=== PATIENT | male | born 1945 | race Caucasian/White ===

== ENCOUNTER 2018-12-08 11:19 | Day surgery (SDC) | payer BC, OTHER ==
[~2018-12-08] VITALS: Ht 165.1 cm; Wt 52.0 kg
[2018-12-08 12:05] VITALS: BP 163/97
[2018-12-08] MEDS ORDERED: LACTATED RINGERS 1,000 ML IV SCH (12:20)
[2018-12-08] MEDS ORDERED: PROPOFOL 50 ML ONE (12:34)
[2018-12-08] MEDS ORDERED: FELO2.5T PO (12:41)
[2018-12-08] MEDS ORDERED: CLOP75TA52 PO (12:41)
[2018-12-08] MEDS ORDERED: ERGO500017 PO (12:41)
[2018-12-08] MEDS ORDERED: ASPI-515 PO (12:41)
[2018-12-08] MEDS ORDERED: FERR324T5 PO (12:41)
[2018-12-08] MEDS ORDERED: ATOR-2 PO (12:41)
[2018-12-08] MEDS ORDERED: HYDR1TAB14 PO (12:41)
[2018-12-08] MEDS ORDERED: LOPE2CAP PO (12:41)
[2018-12-08] MEDS ORDERED: FLUTICASONE (12:41)
[2018-12-08] MEDS ORDERED: LIDOCAINE 2% 100MG/5ML SYRINGE ONE (13:06)
[2018-12-08] MEDS ORDERED: ACETAMINOPHEN 325 MG TABLET PO PRN (13:30)
[2018-12-08] MEDS ORDERED: MORPHINE SULFATE 4 MG/ML, 1ML IVPush PRN (13:30)
[2018-12-08] MEDS ORDERED: OXYcodone 5 MG/5 ML ORAL.SOL UDC PO PRN (13:30)
[2018-12-08] MEDS ORDERED: FENTANYL PF 100 MCG/2ML IV PRN (13:30)
[2018-12-08] MEDS ORDERED: ONDANSETRON 2MG/ML, 2ML IV PRN (13:30)
[2018-12-08] MEDS ORDERED: ONDANSETRON ODT 8 MG PO PRN (13:30)
== END 2018-12-08 15:30 | disposition home or self-care (01) ==
LOC: OUT 11:19
PROVIDERS: ATTEND Internal Medicine Gastroenterology
DX: C15.5 Malignant neoplasm of lower third of esophagus (principal); K22.2 Esophageal obstruction; K21.9 Gastro-esophageal reflux disease without esophagitis; K31.7 Polyp of stomach and duodenum; K44.9 Diaphragmatic hernia without obstruction or gangrene; J44.9 Chronic obstructive pulmonary disease, unspecified; Z86.010 Personal history of colon polyps; Z91.09 Other allergy status, other than to drugs and biological substances; Z87.891 Personal history of nicotine dependence; Z90.49 Acquired absence of other specified parts of digestive tract; Z98.890 Other specified postprocedural states
CPT/HCPCS: 43266; 71045; 76000; 93005; C1769; C1876; J2704

== ENCOUNTER 2018-12-08 19:29 | Inpatient (IN) | payer BC, OTHER ==
[~2018-12-08] VITALS: Ht 160 cm; Wt 56.6 kg
[~2018-12-08 19:29] MED LIST: ASPI-515 PO; ATOR-2 PO; CLOP75TA52 PO; ERGO500017 PO; FELO2.5T PO; FERR324T5 PO; FLUTICASONE; HYDR1TAB14 PO; LOPE2CAP PO
[2018-12-08] MEDS ORDERED: MORPHINE SULFATE 4 MG/ML, 1ML IVPush PRN (20:00)
[2018-12-08] MEDS ORDERED: PLEASE ENTER HEIGHT AND WEIGHT MC SCH (20:00)
[2018-12-08] MEDS ORDERED: SODIUM CHLORIDE FLUSH 10ML SYR IVF ONE (20:00)
--- NOTE | 2018-12-08 20:05 | NUR ---
PT ARRIVES FROM HOME VIA EMS S/P ESOPHAGEAL STENT AND RESECTION. PT WAS GIVEN OKAY TO EAT TODAY AND HAD A GRAPE SMOOTHIE AT [facility]. WHEN PT GOT HOME HE STARTED HAVING UNCONTROLLED BM AND UNABLE TO AMBULATE AND BECAME VERY DIZZY. PTS GRANDSON FOUND PT ON FLOOR AT HOME THEN HE CALLED EMS. PT ON ARIVAL IS COVERED IN FECES. PT EASILY HAD 600CC OF FECAL WATERY MATTER IN RHYMERA AND PT CONTINUES TO HAVE UNCONTROLLED BM AT THIS TIME. 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 PT HAS A RBB ON ARRIVAL AND MD LAW AWARE. PT DENIES ANY TRUAMA. PT IS A/O X4 AND HAS NO OTHER SYMPTOMS AT THIS TIME. PT CONNECTED TO ALL MONITORS AND CALL LIGHT IN REACH. AWIAITING FURTHER ORDERS AT THIS TIME.
--- NOTE | 2018-12-08 20:08 | NUR ---
PT CLEANED AND NEW LINENS PLACED X 2 NOW.
[2018-12-08 20:13] LABS: BASOPHILS # (AUTO) 0.01 x10^3/uL (0-0.1); BASOPHILS % (AUTO) 0 % (0-1); EOSINOPHILS # (AUTO) 0.24 x10^3/uL (0-0.4); EOSINOPHILS % (AUTO) 2 % (1-7); LYMPHOCYTES # (AUTO) 0.42 x10^3/uL (1-3.4); LYMPHOCYTES % (AUTO) 4 % (22-44); MD NO; MEAN CORPUSCULAR HEMOGLOBIN 30.3 pg (27.5-34.5); MEAN CORPUSCULAR HGB CONC 31.2 g/dL (33.2-36.2); MEAN CORPUSCULAR VOLUME 97.2 fL (81-97); MEAN PLATELET VOLUME 8.8 fL (7.4-10.4); MONOCYTES # (AUTO) 0.74 x10^3/uL (0.2-0.8); MONOCYTES % (AUTO) 7 % (2-9); NEUTROPHILS # (AUTO) 8.72 x10^3/uL (1.8-6.8); NEUTROPHILS % (AUTO) 86 % (42-75); PLATELET COUNT 188 x10^3/uL (130-400); RED BLOOD COUNT 3.01 x10^6/uL (4.38-5.82)
--- NOTE | 2018-12-08 20:13 | NUR ---
PILLOW AND WARM BLANKETS PROVIDED. PT CLEANED AGAIN DUE TO UNCONTROLLED BM.
[2018-12-08 20:23] LABS: INTERNATIONAL NORMALIZED RATIO 0.97 (0.93-1.1); PROTHROMBIN TIME 10.3 Seconds (9.6-11.5)
[2018-12-08 20:24] LABS: ALANINE AMINOTRANSFERASE 38 U/L (12-78); ALBUMIN 2.9 g/dL (3.4-5.0); ANION GAP 8 mmol/L (5-15); CHLORIDE 124 mmol/L (98-107); CREATININE 2.66 mg/dL (0.7-1.3)
[2018-12-08 20:27] LABS: ALKALINE PHOSPHATASE 185 U/L (45-117); BILIRUBIN,TOTAL 0.2 mg/dL (0.2-1.0)
--- NOTE | 2018-12-08 20:36 | NUR ---
RECTAL TUBE PLACED WITH RYAN RODRIGUEZ.
--- NOTE | 2018-12-08 20:58 | NUR ---
IVF STARTED ON DIALAFLOW. REPORT CALLED TO [facility] AND INFORMED PT HAS SMALL SORE ON COCCYX AREA THAT NEEDS WOUND DOCUMENTATION. VSS. PT GIVEN ADDITIONAL WARM BLANKET. RECTAL TUBE REMAINS IN PLACE.
[2018-12-08] MEDS ORDERED: SODIUM CHLORIDE 0.9% 1,000 ML IV ONE (21:00)
[2018-12-08 21:41] LABS: CLOSTRIDIUM DIFFICILE ANTIGEN NEGATIVE; CLOSTRIDIUM DIFFICILE TOXIN NEGATIVE (Negative)
[2018-12-08] MEDS ORDERED: SODIUM CHLORIDE 0.9% 1,000 ML IV SCH (22:07)
[2018-12-08] MEDS ORDERED: DOCUSATE 100 MG CAPSULE PO PRN (22:30)
[2018-12-08] MEDS ORDERED: LIDODERM 5% PATCH TD PRN (22:30)
[2018-12-08] MEDS ORDERED: hydrALAzine 20 MG/ML, 1ML IVPush PRN (22:30)
[2018-12-08] MEDS ORDERED: TEMAZEPAM 15 MG CAPSULE PO PRN (22:30)
[2018-12-08] MEDS ORDERED: ONDANSETRON 2MG/ML, 2ML IVPush PRN (22:30)
[2018-12-08] MEDS ORDERED: ACETAMINOPHEN 325 MG TABLET PO PRN (22:30)
[2018-12-09 00:51] VITALS: BP 146/78
[2018-12-09 01:08] LABS: ANION GAP 6 mmol/L (5-15); CHLORIDE 123 mmol/L (98-107); CREATININE 2.47 mg/dL (0.7-1.3)
[2018-12-09 02:00] VITALS: BP 134/73
[2018-12-09 04:57] LABS: ANION GAP 6 mmol/L (5-15); CHLORIDE 124 mmol/L (98-107); CREATININE 2.38 mg/dL (0.7-1.3)
[2018-12-09] MEDS: DEXTROSE 5% 1,000 ML IV SCH ×3 (06:24→15:42)
[2018-12-09 08:18] VITALS: BP 149/76
[2018-12-09 09:22] LABS: ANION GAP 9 mmol/L (5-15); CALCIUM 8.5 mg/dL (8.5-10.1); CHLORIDE 119 mmol/L (98-107); CREATININE 2.47 mg/dL (0.7-1.3)
[2018-12-09 15:09] VITALS: BP 154/72
--- NOTE | 2018-12-09 15:22 | NUR ---
Osmolite 1.2 goal: 70 ml/hr Addendum: 12/09/18 at [address] Amended: Links added.
[2018-12-09 15:42] LABS: ANION GAP 7 mmol/L (5-15); CALCIUM 8.5 mg/dL (8.5-10.1); CHLORIDE 118 mmol/L (98-107); CREATININE 2.38 mg/dL (0.7-1.3)
[2018-12-09 20:00] VITALS: BP 148/77
[2018-12-09 20:57] LABS: ANION GAP 7 mmol/L (5-15); CALCIUM 7.8 mg/dL (8.5-10.1); CHLORIDE 115 mmol/L (98-107); CREATININE 2.34 mg/dL (0.7-1.3)
[2018-12-09] MEDS: ATORVASTATIN 80 MG TABLET PO SCH (22:00)
[2018-12-10] MEDS: DEXTROSE 5% 1,000 ML IV SCH (00:50)
[2018-12-10 02:00] VITALS: BP 147/73
[2018-12-10 03:18] LABS: ANION GAP 7 mmol/L (5-15); CALCIUM 7.7 mg/dL (8.5-10.1); CHLORIDE 114 mmol/L (98-107)
[2018-12-10 03:21] LABS: CREATININE 2.35 mg/dL (0.7-1.3)
[2018-12-10 04:53] LABS: MEAN CORPUSCULAR HEMOGLOBIN 31.5 pg (27.5-34.5); MEAN CORPUSCULAR HGB CONC 32.5 g/dL (33.2-36.2); MEAN CORPUSCULAR VOLUME 96.8 fL (81-97); MEAN PLATELET VOLUME 9.7 fL (7.4-10.4); PLATELET COUNT 144 x10^3/uL (130-400); RED BLOOD COUNT 2.67 x10^6/uL (4.38-5.82); RED CELL DISTRIBUTION WIDTH 17.5 % (9.4-14.8)
[2018-12-10 05:36] LABS: MD YES
[2018-12-10 05:37] LABS: BAND#(MANUAL) 0.24 x10^3/uL; BANDS%(MANUAL) 1 % (0-7); LYMPH#(MANUAL) 1.69 x10^3/uL (1-3.4); LYMPHS% (MANUAL) 7 % (22-44); MONOS#(MANUAL) 0.48 x10^3/uL (0.3-2.7); MONOS% (MANUAL) 2 % (2-9); SEG#(MANUAL) 21.69 x10^3/uL (1.8-6.8); SEGS% (MANUAL) 90 % (42-75)
[2018-12-10 05:38] LABS: <PLATELET ESTIMATE> ADEQUATE; ANISOCYTOSIS 1+; HYPOCHROMIA 1+; OVALOCYTES 1+; POLYCHROMASIA 1+
[2018-12-10 05:39] LABS: <PLT MORPHOLOGY> NORMAL PLT MORPH
[2018-12-10] MEDS: ASPIRIN 81 MG TABLET EC PO SCH (05:51)
[2018-12-10 07:13] VITALS: BP 151/75
[2018-12-10 08:48] LABS: MEAN CORPUSCULAR HEMOGLOBIN 31.1 pg (27.5-34.5); MEAN CORPUSCULAR HGB CONC 32.5 g/dL (33.2-36.2); MEAN CORPUSCULAR VOLUME 95.6 fL (81-97); MEAN PLATELET VOLUME 9.4 fL (7.4-10.4); PLATELET COUNT 138 x10^3/uL (130-400); RED CELL DISTRIBUTION WIDTH 17.6 % (9.4-14.8)
[2018-12-10 08:55] LABS: ANION GAP 8 mmol/L (5-15); CALCIUM 7.9 mg/dL (8.5-10.1); CHLORIDE 114 mmol/L (98-107); CREATININE 2.23 mg/dL (0.7-1.3)
[2018-12-10 08:58] LABS: HCT (SEDRATE) 26.8 % (39.2-51.8)
[2018-12-10] MEDS: CLOPIDOGREL 75 MG TABLET PO SCH (09:00)
[2018-12-10 09:04] LABS: MD YES
[2018-12-10 09:05] LABS: EOS#(MANUAL) 0.49 x10^3/uL (0.0-0.4); EOS% (MANUAL) 2 % (1-7); LYMPH#(MANUAL) 0.99 x10^3/uL (1-3.4); LYMPHS% (MANUAL) 4 % (22-44); MONOS#(MANUAL) 0.74 x10^3/uL (0.3-2.7); MONOS% (MANUAL) 3 % (2-9); SEG#(MANUAL) 22.48 x10^3/uL (1.8-6.8); SEGS% (MANUAL) 91 % (42-75)
[2018-12-10 09:06] LABS: ANISOCYTOSIS 1+; HYPOCHROMIA 1+; OVALOCYTES 1+; POLYCHROMASIA 1+
[2018-12-10 09:07] LABS: <PLATELET ESTIMATE> ADEQUATE; <PLT MORPHOLOGY> NORMAL PLT MORPH
[2018-12-10 12:44] VITALS: BP 137/68
[2018-12-10 19:37] VITALS: BP 130/67
[2018-12-10] MEDS: ATORVASTATIN 80 MG TABLET PO SCH (21:00)
[2018-12-11 01:14] VITALS: BP 127/73
[2018-12-11 04:41] LABS: MEAN CORPUSCULAR HEMOGLOBIN 31.8 pg (27.5-34.5); MEAN CORPUSCULAR HGB CONC 33.3 g/dL (33.2-36.2); MEAN CORPUSCULAR VOLUME 95.6 fL (81-97); MEAN PLATELET VOLUME 9.1 fL (7.4-10.4); PLATELET COUNT 129 x10^3/uL (130-400); RED CELL DISTRIBUTION WIDTH 17.6 % (9.4-14.8)
[2018-12-11 04:50] LABS: ANION GAP 7 mmol/L (5-15); CALCIUM 8.1 mg/dL (8.5-10.1); CHLORIDE 117 mmol/L (98-107); CREATININE 2.03 mg/dL (0.7-1.3)
[2018-12-11 05:35] LABS: BASOPHILS % (AUTO) 0 % (0-1); EOSINOPHILS # (AUTO) 0.59 x10^3/uL (0-0.4); EOSINOPHILS % (AUTO) 3 % (1-7); LYMPHOCYTES # (AUTO) 0.66 x10^3/uL (1-3.4); LYMPHOCYTES % (AUTO) 3 % (22-44); MD SCAN; MONOCYTES # (AUTO) 1.39 x10^3/uL (0.2-0.8); MONOCYTES % (AUTO) 7 % (2-9); NEUTROPHILS # (AUTO) 17.27 x10^3/uL (1.8-6.8); NEUTROPHILS % (AUTO) 87 % (42-75)
[2018-12-11] MEDS: ASPIRIN 81 MG TABLET EC PO SCH (05:50)
[2018-12-11 07:30] VITALS: BP 134/74
[2018-12-11] MEDS: CLOPIDOGREL 75 MG TABLET PO SCH (09:22)
[2018-12-11 13:45] VITALS: BP 132/74
--- NOTE | 2018-12-11 16:41 | NUR ---
Osmolite 1.2 18 hour feeds with goal of 90 ml/hr. restart at 20 ml/hr. (18 hour feeds, 6 hours off) Addendum: 12/11/18 at [address] Amended: Links added.
[2018-12-11 19:27] VITALS: BP 142/77
[2018-12-11] MEDS: ATORVASTATIN 80 MG TABLET PO SCH (20:46)
[2018-12-12 02:35] VITALS: BP 136/70
[2018-12-12 04:36] LABS: MEAN CORPUSCULAR HEMOGLOBIN 30.9 pg (27.5-34.5); MEAN CORPUSCULAR HGB CONC 32.2 g/dL (33.2-36.2); MEAN CORPUSCULAR VOLUME 95.9 fL (81-97); MEAN PLATELET VOLUME 9.5 fL (7.4-10.4); PLATELET COUNT 134 x10^3/uL (130-400); RED CELL DISTRIBUTION WIDTH 17.7 % (9.4-14.8)
[2018-12-12 04:42] LABS: ANION GAP 9 mmol/L (5-15); CALCIUM 7.4 mg/dL (8.5-10.1); CHLORIDE 117 mmol/L (98-107); CREATININE 1.73 mg/dL (0.7-1.3)
[2018-12-12] MEDS: ASPIRIN 81 MG TABLET EC PO SCH (05:03)
[2018-12-12 05:11] LABS: BASOPHILS # (AUTO) 0.03 x10^3/uL (0-0.1); BASOPHILS % (AUTO) 0 % (0-1); EOSINOPHILS # (AUTO) 0.64 x10^3/uL (0-0.4); EOSINOPHILS % (AUTO) 6 % (1-7); LYMPHOCYTES # (AUTO) 0.54 x10^3/uL (1-3.4); LYMPHOCYTES % (AUTO) 5 % (22-44); MD SCAN; MONOCYTES # (AUTO) 0.92 x10^3/uL (0.2-0.8); MONOCYTES % (AUTO) 9 % (2-9); NEUTROPHILS # (AUTO) 8.71 x10^3/uL (1.8-6.8); NEUTROPHILS % (AUTO) 80 % (42-75)
[2018-12-12 07:25] VITALS: BP 145/72
[2018-12-12] MEDS: SODIUM CHLORIDE 0.9% 1,000 ML IV SCH (09:00)
[2018-12-12] MEDS: CLOPIDOGREL 75 MG TABLET PO SCH (09:00)
[2018-12-12 13:10] VITALS: BP 138/70
[2018-12-12 18:54] VITALS: BP 137/72
[2018-12-12] MEDS: ATORVASTATIN 80 MG TABLET PO SCH (20:29)
[2018-12-13 00:54] VITALS: BP 140/68
[2018-12-13] MEDS: SODIUM CHLORIDE 0.9% 1,000 ML IV SCH ×2 (02:23→19:25)
[2018-12-13 04:58] LABS: MEAN CORPUSCULAR HGB CONC 32.5 g/dL (33.2-36.2); MEAN CORPUSCULAR VOLUME 95.4 fL (81-97); MEAN PLATELET VOLUME 9.4 fL (7.4-10.4); PLATELET COUNT 143 x10^3/uL (130-400); RED BLOOD COUNT 2.31 x10^6/uL (4.38-5.82); RED CELL DISTRIBUTION WIDTH 17.5 % (9.4-14.8)
[2018-12-13 05:04] LABS: ANION GAP 6 mmol/L (5-15); CALCIUM 7.4 mg/dL (8.5-10.1); CHLORIDE 120 mmol/L (98-107)
[2018-12-13 05:06] LABS: CREATININE 1.69 mg/dL (0.7-1.3)
[2018-12-13] MEDS: ASPIRIN 81 MG TABLET EC PO SCH (05:14)
[2018-12-13 05:19] LABS: BASOPHILS # (AUTO) 0.02 x10^3/uL (0-0.1); BASOPHILS % (AUTO) 0 % (0-1); EOSINOPHILS % (AUTO) 4 % (1-7); LYMPHOCYTES % (AUTO) 5 % (22-44); MD SCAN; MONOCYTES # (AUTO) 0.91 x10^3/uL (0.2-0.8); MONOCYTES % (AUTO) 10 % (2-9); NEUTROPHILS % (AUTO) 81 % (42-75)
[2018-12-13] MEDS: CLOPIDOGREL 75 MG TABLET PO SCH (07:59)
[2018-12-13 08:33] VITALS: BP 132/68
[2018-12-13 13:30] VITALS: BP 138/64
[2018-12-13 19:07] VITALS: BP 134/64
[2018-12-13] MEDS: ATORVASTATIN 80 MG TABLET PO SCH (21:09)
[2018-12-14 02:28] VITALS: BP 140/70
[2018-12-14 03:14] VITALS: BP 140/72
[2018-12-14 04:49] LABS: MEAN CORPUSCULAR HEMOGLOBIN 30.6 pg (27.5-34.5); MEAN CORPUSCULAR HGB CONC 32.2 g/dL (33.2-36.2); MEAN PLATELET VOLUME 9.1 fL (7.4-10.4); PLATELET COUNT 158 x10^3/uL (130-400); RED BLOOD COUNT 2.31 x10^6/uL (4.38-5.82); RED CELL DISTRIBUTION WIDTH 17.1 % (9.4-14.8)
[2018-12-14 04:56] LABS: ANION GAP 6 mmol/L (5-15); CALCIUM 7.6 mg/dL (8.5-10.1); CHLORIDE 121 mmol/L (98-107); CREATININE 1.63 mg/dL (0.7-1.3)
[2018-12-14 05:20] LABS: BASOPHILS # (AUTO) 0.01 x10^3/uL (0-0.1); BASOPHILS % (AUTO) 0 % (0-1); EOSINOPHILS # (AUTO) 0.46 x10^3/uL (0-0.4); EOSINOPHILS % (AUTO) 5 % (1-7); LYMPHOCYTES # (AUTO) 0.58 x10^3/uL (1-3.4); LYMPHOCYTES % (AUTO) 7 % (22-44); MD SCAN; MONOCYTES # (AUTO) 0.84 x10^3/uL (0.2-0.8); MONOCYTES % (AUTO) 10 % (2-9); NEUTROPHILS # (AUTO) 6.91 x10^3/uL (1.8-6.8); NEUTROPHILS % (AUTO) 79 % (42-75)
[2018-12-14] MEDS: ASPIRIN 81 MG TABLET EC PO SCH (05:59)
[2018-12-14 08:15] VITALS: BP 147/73
[2018-12-14] MEDS: CLOPIDOGREL 75 MG TABLET PO SCH (08:24)
[2018-12-14] MEDS: SODIUM CHLORIDE 0.9% 1,000 ML IV SCH (08:29)
[2018-12-14 13:18] VITALS: BP 153/74
== END 2018-12-14 18:27 | disposition home or self-care (01) | DRG 682 ==
LOC: ED 19:46 → EDIP 20:35 → 3NW 21:15
PROVIDERS: ADMIT Internal Medicine; ATTEND Internal Medicine
DX: N17.0 Acute kidney failure with tubular necrosis (principal); E43 Unspecified severe protein-calorie malnutrition; E87.0 Hyperosmolality and hypernatremia; C15.9 Malignant neoplasm of esophagus, unspecified; I12.9 Hypertensive chronic kidney disease with stage 1 through stage 4 chronic kidney disease, or unspecified chronic kidney disease; E78.5 Hyperlipidemia, unspecified; L89.159 Pressure ulcer of sacral region, unspecified stage; R62.7 Adult failure to thrive; Z66 Do not resuscitate; N18.9 Chronic kidney disease, unspecified; Z68.22 Body mass index [BMI] 22.0-22.9, adult; Z86.73 Personal history of transient ischemic attack (TIA), and cerebral infarction without residual deficits; Z87.891 Personal history of nicotine dependence
CPT/HCPCS: 36415; 71045; 80048; 80053; 83690; 83735; 83930; 84100; 84145; 85025; 85610; 85651; 85730; 86140; 87324; 93005; 99285; G0378; J7070; 92523-GN; J7030

== ENCOUNTER 2019-10-11 12:51 | Inpatient (IN) | payer BC, MEDICARE ==
[~2019-10-11] VITALS: Ht 165.1 cm; Wt 45.8 kg
[~2019-10-11 12:51] MED LIST changes: +FURO20TA3 PO; -HYDR1TAB14 PO; +HYDR1TAB15 PO; +OMEP-110 PO; +POTA20TA14 PO
[2019-10-11] MEDS ORDERED: SODIUM CHLORIDE FLUSH 10ML SYR IVF ONE (13:00)
--- NOTE | 2019-10-11 13:09 | NUR ---
CXR DONE. LAB AT BS
--- NOTE | 2019-10-11 13:27 | NUR ---
PT A&OX4, RESP EVEN & UNLABORED, SPEECH CLEAR. PT C/O WEAKNESS, WEIGHT LOSS (ABOUT 16 LBS IN PAST 2 WEEKS). HX: ESOPHAGEAL CA, THROAT STENT. LAST CHEMO TX WAS 09/27/19 - CHEMO EVERY OTHER WEAK. STATES HE PREFERS LASHAWN LINDA TO WATER. HAD BREAKFAST ESSENTIALS LIQUID THIS MORNING. WILL NEED SOLID FOOD LIQUIFIED IF ADMITTED.
[2019-10-11] MEDS ORDERED: LOSA25TA12 PO (13:42)
[2019-10-11] MEDS ORDERED: ATOR20TA86 PO (13:42)
[2019-10-11 13:43] LABS: ALANINE AMINOTRANSFERASE 13 U/L (12-78); ALBUMIN 2.2 g/dL (3.4-5.0); ANION GAP 8 mmol/L (5-15); CALCIUM 8.3 mg/dL (8.5-10.1); CHLORIDE 111 mmol/L (98-107); CREATININE 1.42 mg/dL (0.7-1.3)
[2019-10-11 13:45] LABS: ALKALINE PHOSPHATASE 165 U/L (45-117); BILIRUBIN,TOTAL 0.3 mg/dL (0.2-1.0); TOTAL PROTEIN 6.6 g/dL (6.4-8.2)
--- NOTE | 2019-10-11 13:45 | NUR ---
PT REPORTS HE'S HAD A BUTTOCK BED SORE FOR 2 MONTHS; SORE IS IMPROVING.
[2019-10-11 13:56] LABS: MD YES; MEAN CORPUSCULAR HEMOGLOBIN 35.1 pg (27.5-34.5); MEAN CORPUSCULAR HGB CONC 32.1 g/dL (33.2-36.2); MEAN CORPUSCULAR VOLUME 109.3 fL (81-97); MEAN PLATELET VOLUME 8.5 fL (7.4-10.4); PLATELET COUNT 68 x10^3/uL (130-400); RED BLOOD COUNT 2.81 x10^6/uL (4.38-5.82); RED CELL DISTRIBUTION WIDTH 18.9 % (9.4-14.8)
[2019-10-11] MEDS ORDERED: LIDO30CR TP (14:14)
[2019-10-11] MEDS ORDERED: TORS10TA4 PO (14:14)
[2019-10-11] MEDS ORDERED: CEPH-376 PO (14:14)
[2019-10-11] MEDS ORDERED: CALC0.25 PO (14:14)
[2019-10-11] MEDS ORDERED: SINEX (14:16)
[2019-10-11] MEDS ORDERED: ALKALOL (14:16)
[2019-10-11] MEDS ORDERED: HYDR-3237 PO (14:16)
--- NOTE | 2019-10-11 14:39 | NUR ---
PT PREFERS PORT ACCESS FOR IV SOLUTIONS/MEDICATIONS
--- NOTE | 2019-10-11 14:44 | NUR ---
PT REMINDED OF NEED FOR URINE SPECIMEN; DENIES URGE TO VOID. SPECIMEN CUP AT BEDSIDE. NATALIO CAN AT BS. GOKUL HARKINS WARMER PROVIDED TO PT.
[2019-10-11] MEDS ORDERED: D5%-0.45% NACL 1,000 ML IV SCH (15:00)
--- NOTE | 2019-10-11 15:20 | NUR ---
NOTIFIED [facility] OF D5/NS 0.45 ORDER. HOSPTIALIST QUESTIONING ORDER & IS CONSIDERING CHANGING IT.
--- NOTE | 2019-10-11 15:28 | NUR ---
PT REPORT TO [facility] FOR ROOM 439. INFORMED RN THAT HOSPITALIST IS QUESTIONING ERP ORDER OF D5/NS0.45 AND WILL PROBABLY CHANGE IT.
--- NOTE | 2019-10-11 15:30 | NUR ---
UA SPECIMEN STILL NOT PROVIDED.
[2019-10-11 15:31] LABS: BAND#(MANUAL) 0.32 x10^3/uL; BANDS%(MANUAL) 6 % (0-7); EOS#(MANUAL) 0.58 x10^3/uL (0.0-0.4); EOS% (MANUAL) 11 % (1-7); LYMPHS% (MANUAL) 15 % (22-44); MONOS#(MANUAL) 1.38 x10^3/uL (0.3-2.7); MONOS% (MANUAL) 26 % (2-9); SEG#(MANUAL) 2.23 x10^3/uL (1.8-6.8); SEGS% (MANUAL) 42 % (42-75)
[2019-10-11 15:32] LABS: <PLATELET ESTIMATE> DECREASED; ANISOCYTOSIS 1+; OVALOCYTES 1+; POLYCHROMASIA 1+; TEAR DROPS 1+
[2019-10-11 15:33] LABS: <PLT MORPHOLOGY> NORMAL PLT MORPH
--- NOTE | 2019-10-11 15:35 | NUR ---
CALLED [facility] RE: PORT ACCESS VS PERIPHERAL IV. THEY WILL ACCESS PORT PRN.
[2019-10-11] MEDS ORDERED: ONDANSETRON 2MG/ML, 2ML IVPush PRN (16:00)
[2019-10-11] MEDS ORDERED: LIDOCAINE TP PRN (16:00)
[2019-10-11] MEDS ORDERED: PRILOCAINE TP PRN (16:00)
[2019-10-11] MEDS ORDERED: LABETALOL 5MG/ML, 20ML IVPush PRN (16:00)
[2019-10-11] MEDS ORDERED: PROMETHAZINE 25 MG/ML, 1ML IM PRN (16:00)
[2019-10-11] MEDS ORDERED: POLYETHYLENE GLYCOL 17 GM PACKET PO PRN (16:00)
[2019-10-11] MEDS ORDERED: LABETALOL 5 MG/ML SYR. (IV ONLY) IVPush PRN (16:00)
[2019-10-11] MEDS ORDERED: LOPERAMIDE 2 MG CAPSULE PO PRN (16:00)
[2019-10-11] MEDS ORDERED: ENALAPRILAT 1.25 MG/ML, 2ML IVPush PRN (16:00)
[2019-10-11] MEDS ORDERED: METOCLOPRAMIDE 5 MG/ML, 2ML IVPush PRN (16:00)
--- NOTE | 2019-10-11 16:01 | NUR ---
DR HOYOS BS.
[2019-10-11 16:38] VITALS: BP 133/92
[2019-10-11 17:15] LABS: MICROSCOPIC AUTO
[2019-10-11 17:18] LABS: CULTURE INDICATED? NO
[2019-10-11] MEDS: D5%-0.45% NACL 1,000 ML IV SCH (18:31)
[2019-10-11 19:09] VITALS: BP 121/74
[2019-10-11 20:00] VITALS: BP 118/63
[2019-10-12] VITALS (7 sets, daily range): BP systolic 117–147; BP diastolic 67–78
[2019-10-12] MEDS: D5%-0.45% NACL 1,000 ML IV SCH ×2 (02:30→13:07)
[2019-10-12 05:45] LABS: CHLORIDE 110 mmol/L (98-107)
[2019-10-12 05:56] LABS: ANION GAP 6 mmol/L (5-15); CALCIUM 7.9 mg/dL (8.5-10.1); CREATININE 1.41 mg/dL (0.7-1.3)
[2019-10-12 07:14] LABS: MD YES; MEAN CORPUSCULAR HEMOGLOBIN 35.3 pg (27.5-34.5); MEAN CORPUSCULAR HGB CONC 31.8 g/dL (33.2-36.2); MEAN CORPUSCULAR VOLUME 110.8 fL (81-97); MEAN PLATELET VOLUME 8.9 fL (7.4-10.4); PLATELET COUNT 58 x10^3/uL (130-400); RED BLOOD COUNT 2.17 x10^6/uL (4.38-5.82); RED CELL DISTRIBUTION WIDTH 19.2 % (9.4-14.8)
[2019-10-12 07:16] LABS: ANISOCYTOSIS 1+; BASOS#(MANUAL) 0.05 x10^3/uL (0-0.1); BASOS% (MANUAL) 1 % (0-1); EOS% (MANUAL) 13 % (1-7); LYMPH#(MANUAL) 0.78 x10^3/uL (1-3.4); LYMPHS% (MANUAL) 17 % (22-44); MONOS#(MANUAL) 0.83 x10^3/uL (0.3-2.7); MONOS% (MANUAL) 18 % (2-9); POLYCHROMASIA 1+; SEG#(MANUAL) 2.35 x10^3/uL (1.8-6.8); SEGS% (MANUAL) 51 % (42-75)
[2019-10-12 07:17] LABS: <PLATELET ESTIMATE> DECREASED; <PLT MORPHOLOGY> NORMAL PLT MORPH; OVALOCYTES 1+; TEAR DROPS 1+
[2019-10-12] MEDS ORDERED: TORSEMIDE 20 MG TABLET PO SCH (09:00)
[2019-10-12] MEDS ORDERED: GUAIFENESIN 200 MG TABLET PO PRN (12:00)
[2019-10-12] MEDS: ATORVASTATIN 20 MG TABLET PO SCH (13:05)
[2019-10-12] MEDS: CALCITRIOL 0.25 MCG CAPSULE PO SCH (13:05)
[2019-10-12] MEDS: LOPERAMIDE 2 MG CAPSULE PO PRN (13:13)
[2019-10-12] MEDS: FERROUS SULFATE 325 MG TABLET PO SCH (13:13)
--- NOTE | 2019-10-12 14:00 | NUR ---
REC PUREE/NTL WITH CARMELITA CHI; swallow precautions sheet to be posted at bedside Addendum: 10/12/19 at [address] Amended: Links added.
[2019-10-12] MEDS ORDERED: D5%-0.45% NACL 1,000 ML IV SCH ×2 (15:00→18:30)
[2019-10-12] MEDS ORDERED: METOCLOPRAMIDE 5 MG/ML, 2ML IVPush PRN (16:15)
[2019-10-12] MEDS: ACETAMINOPHEN 325 MG TABLET PO PRN (18:40)
[2019-10-13 01:18] VITALS: BP 126/68
[2019-10-13 06:26] LABS: MEAN CORPUSCULAR HEMOGLOBIN 33.9 pg (27.5-34.5); MEAN CORPUSCULAR VOLUME 102.7 fL (81-97); MEAN PLATELET VOLUME 8.1 fL (7.4-10.4); PLATELET COUNT 61 x10^3/uL (130-400); RED BLOOD COUNT 2.78 x10^6/uL (4.38-5.82); RED CELL DISTRIBUTION WIDTH 25.2 % (9.4-14.8)
[2019-10-13 06:29] LABS: MD YES
[2019-10-13 06:33] LABS: BAND#(MANUAL) 0.18 x10^3/uL; BANDS%(MANUAL) 3 % (0-7); BASOS#(MANUAL) 0.06 x10^3/uL (0-0.1); BASOS% (MANUAL) 1 % (0-1); EOS#(MANUAL) 0.18 x10^3/uL (0.0-0.4); EOS% (MANUAL) 3 % (1-7); LYMPH#(MANUAL) 0.54 x10^3/uL (1-3.4); LYMPHS% (MANUAL) 9 % (22-44); MONOS#(MANUAL) 1.44 x10^3/uL (0.3-2.7); MONOS% (MANUAL) 24 % (2-9); SEGS% (MANUAL) 60 % (42-75)
[2019-10-13 06:35] LABS: ANISOCYTOSIS 1+; POLYCHROMASIA 1+
[2019-10-13 06:37] LABS: <PLATELET ESTIMATE> DECREASED; <PLT MORPHOLOGY> NORMAL PLT MORPH; OVALOCYTES 1+; TEAR DROPS 1+
[2019-10-13 07:20] VITALS: BP 129/80
[2019-10-13] MEDS: FERROUS SULFATE 325 MG TABLET PO SCH (08:36)
[2019-10-13] MEDS: ATORVASTATIN 20 MG TABLET PO SCH (08:36)
[2019-10-13] MEDS: CALCITRIOL 0.25 MCG CAPSULE PO SCH (08:36)
[2019-10-13 13:23] VITALS: BP 133/80
[2019-10-13] MEDS: HYDROcodone/APAP 5/325 TABLET PO PRN (14:59)
[2019-10-13] MEDS: ACETAMINOPHEN 325 MG TABLET PO PRN (18:35)
[2019-10-13 20:12] VITALS: BP 119/66
[2019-10-14 03:45] VITALS: BP 130/75
[2019-10-14] MEDS: HYDROcodone/APAP 5/325 TABLET PO PRN ×2 (04:32→14:19)
[2019-10-14 08:14] VITALS: BP 111/76
[2019-10-14] MEDS: ATORVASTATIN 20 MG TABLET PO SCH (09:37)
[2019-10-14] MEDS: FERROUS SULFATE 325 MG TABLET PO SCH (09:37)
[2019-10-14] MEDS: CALCITRIOL 0.25 MCG CAPSULE PO SCH (09:37)
[2019-10-14] MEDS: ACETAMINOPHEN 325 MG TABLET PO PRN (09:57)
[2019-10-14 12:55] VITALS: BP 104/68
[2019-10-14 20:00] VITALS: BP 120/64
[2019-10-15] MEDS: HYDROcodone/APAP 5/325 TABLET PO PRN ×2 (00:15→13:48)
[2019-10-15 01:33] VITALS: BP 115/67
[2019-10-15] MEDS: ACETAMINOPHEN 325 MG TABLET PO PRN ×2 (03:16→08:12)
[2019-10-15 07:23] VITALS: BP 119/66
[2019-10-15] MEDS: ATORVASTATIN 20 MG TABLET PO SCH (08:12)
[2019-10-15] MEDS: LOPERAMIDE 2 MG CAPSULE PO PRN (08:12)
[2019-10-15] MEDS: CALCITRIOL 0.25 MCG CAPSULE PO SCH (08:12)
[2019-10-15] MEDS: FERROUS SULFATE 325 MG TABLET PO SCH (08:12)
[2019-10-15] MEDS ORDERED: FOLIC ACID 1 MG TABLET PO SCH (09:00)
[2019-10-15 12:54] VITALS: BP 120/73
== END 2019-10-15 19:05 | disposition home or self-care (01) | DRG 811 ==
LOC: ED 14:32 → EDIP 15:03 → 4NW 16:20
PROVIDERS: ADMIT Family Medicine; ATTEND Family Medicine
PROC: 30233N1 Transfusion of Nonautologous Red Blood Cells into Peripheral Vein, Percutaneous Approach (ICD-10-PCS; principal; 2019-10-12)
DX: D52.9 Folate deficiency anemia, unspecified (principal); E43 Unspecified severe protein-calorie malnutrition; C15.9 Malignant neoplasm of esophagus, unspecified; J98.11 Atelectasis; Z68.1 Body mass index [BMI] 19.9 or less, adult; R64 Cachexia; K52.1 Toxic gastroenteritis and colitis; D53.9 Nutritional anemia, unspecified; D63.8 Anemia in other chronic diseases classified elsewhere; D69.6 Thrombocytopenia, unspecified; E83.51 Hypocalcemia; E86.0 Dehydration; N18.9 Chronic kidney disease, unspecified; R13.10 Dysphagia, unspecified; R62.7 Adult failure to thrive; I12.9 Hypertensive chronic kidney disease with stage 1 through stage 4 chronic kidney disease, or unspecified chronic kidney disease; T45.1X5A Adverse effect of antineoplastic and immunosuppressive drugs, initial encounter; Z66 Do not resuscitate; Z87.891 Personal history of nicotine dependence; Y92.89 Other specified places as the place of occurrence of the external cause
CPT/HCPCS: 36415; 71045; 74230; 80048; 80053; 81001; 82607; 83735; 84100; 85025; 86850; 86900; 86923; 99285; G0378; P9040